=== PATIENT | female | born 1950 | race Caucasian/White ===

== ENCOUNTER 2019-01-06 23:35 | Emergency (ER) | payer MEDICARE, OTHER ==
[~2019-01-06] VITALS: Ht 154.9 cm; Wt 71.3 kg
[~2019-01-06 23:35] MED LIST: ACET-787 PO; GLIP10TA3 PO; IBUP-2213 PO; LOSA25TA14 PO; METF1000 PO; OMEP40EC1 PO; SIMV10TA1 PO
[2019-01-06 23:43] VITALS: BP 165/108
--- NOTE | 2019-01-06 23:52 | NUR ---
PT TAKEN TO BED 12.
--- NOTE | 2019-01-06 23:53 | NUR ---
68 YO F BIB SON PRESENTS TO THE ED C/O URINARY RETENTION X 1 DAY. PT REPORTS 10/10 PAIN TO SUPRAPUBIC REGION. -- BLADDER DISTENTION NOTED. SUPRAPUBIC TENDERNESS PRESENT. -- PT SHOWING SIGNS OF SEVERE PAIN: GRIMACING, TREMBLING. SKIN IS WARM/DRY/PINK. -- PMH: PREVIOUS BLADDER ISSUES, HTN, DM PT POSITIONED FOR COMFORT. HOB ELEVATED. SIDE RAIL UP X1. BED IN LOWEST POSITION. ERMD EVALUATING PT AT BEDSIDE.
--- NOTE | 2019-01-07 00:05 | NUR ---
# 16 FR Madrid catheter with 10 ml utilizing sterile technique. Immediate return of 700 ml clear, yellow urine noted. Bedside drainage bag placed below level of bladder. Urine sample collected and sent to lab. Pt tolerated procedure well. Addendum: 01/07/19 at 0148 by [facility] Pt reports immediate relief from catheter.
[2019-01-07 00:26] LABS: APPEARANCE,URINE SL CLOUDY (CLEAR); BILIRUBIN,URINE NEGATIVE (NEGATIVE); BLOOD, URINE 3+ (NEGATIVE); COLOR,URINE YELLOW (YELLOW); LEUKOCYTE ESTERASE ,URINE NEGATIVE (NEGATIVE); NITRITE, URINE NEGATIVE (NEGATIVE); UGLUCOSE TRACE (NEGATIVE)
[2019-01-07 00:40] LABS: RBC,URINE 20-50 /HPF (0-5); WBC,URINE 0 /HPF (0-5)
[2019-01-07] MEDS ORDERED: KETOROLAC 30 MG/ML VIAL IVP ONE (00:45)
[2019-01-07] MEDS ORDERED: cefTRIAXone 1,000 MG VIAL ONE (01:07)
--- NOTE | 2019-01-07 02:18 | NUR ---
Patient discharged with v/s stable. Written and verbal after care instructions given and explained. Patient alert, oriented and verbalized understanding of instructions. Ambulatory with steady gait. All questions addressed prior to discharge. ID band removed. Patient advised to follow up with PMD. Rx of Pyridium and Ciproflaxacin given. Patient educated on indication of medication including possible reaction and side effects. Leg bag placed for indwelling catheter urinary drainage. Instructions provided for care. Pt instructed to follow up with PMD. Opportunity to ask questions provided and answered. Discharged by Dr. Mike.
[2019-01-07 02:26] VITALS: BP 125/67
== END 2019-01-07 02:18 | disposition home or self-care (01) ==
LOC: MED 23:35
DX: N39.0 Urinary tract infection, site not specified (principal); R33.9 Retention of urine, unspecified; E11.9 Type 2 diabetes mellitus without complications; Z79.84 Long term (current) use of oral hypoglycemic drugs; Z79.1 Long term (current) use of non-steroidal anti-inflammatories (NSAID); Z79.899 Other long term (current) drug therapy
CPT/HCPCS: 51702; 81001; 82948; 96365; 96375; 99284; J0696; J1885

== ENCOUNTER 2019-09-29 18:07 | Emergency (ER) | payer MEDICARE, OTHER ==
[~2019-09-29] VITALS: Ht 152.4 cm; Wt 68.0 kg
[~2019-09-29 18:07] MED LIST changes: -ACET-787 PO; -LOSA25TA14 PO; +LOSA25TA32 PO; -OMEP40EC1 PO; +OMEP40EC24 PO
[2019-09-29 18:29] VITALS: BP 166/94
--- NOTE | 2019-09-29 18:41 | NUR ---
PT AMB TO BED 3
--- NOTE | 2019-09-29 18:51 | NUR ---
69 Y/O F C/O UNABLE TO URINATE. PT STATES SHE HAS LOWER ABDOMINAL PAIN AND UNABLE TO URINATE SINCE THIS MORNING. PT GAVE A URINE SAMPLE THAT IS RED IN COLOR. PT STATES LAST TIME THIS HAPPENED, SHE HAD A UTI. PT DENIES ANY N/V/F. MED HX: DM, HTN
[2019-09-29] MEDS ORDERED: HYDROcodone/APAP 5/325 MG 1 TAB TAB PO ONE (19:15)
[2019-09-29] MEDS ORDERED: CEPHALEXIN 500 MG CAP PO ONE (19:45)
[2019-09-29 19:58] LABS: BASOPHILS % (AUTO) 0.4 % (0.0-2.0); EOSINOPHILS # (AUTO) 0.1 K/uL (0-0.4); EOSINOPHILS % (AUTO) 0.6 % (0.0-4.0); HEMATOCRIT 33.6 % (36-48); HEMOGLOBIN 11.2 g/dL (12.0-16.0); LYMPHOCYTES # (AUTO) 1.7 K/uL (2.5-16.5); LYMPHOCYTES % (AUTO) 14.5 % (20.5-51.1); MEAN CORPUSCULAR HEMOGLOBIN 30 pg (27-31); MEAN CORPUSCULAR HGB CONC 33 g/dL (33-37); MEAN CORPUSCULAR VOLUME 88.5 fL (80-94); MONOCYTES # (AUTO) 0.6 K/uL (0.8-1.0); MONOCYTES % (AUTO) 4.8 % (1.7-9.3); NEUTROPHILS # (AUTO) 9.1 K/uL (1.8-7.7); NEUTROPHILS % (AUTO) 79.7 % (42.2-75.2); PLATELET COUNT (AUTO) 273 K/uL (140-450); WHITE BLOOD COUNT (AUTO) 11.5 K/uL (4.8-10.8)
[2019-09-29 20:07] LABS: ANION GAP 14.3 (8-16); CARBON DIOXIDE 24.4 mmol/L (21-32); CREATININE 0.8 mg/dL (0.6-1.3); POTASSIUM 3.7 mmol/L (3.5-5.1)
[2019-09-29 20:46] LABS: APPEARANCE,URINE CLOUDY (CLEAR); BILIRUBIN,URINE NEGATIVE (NEGATIVE); BLOOD, URINE 3+ (NEGATIVE); COLOR,URINE RED (YELLOW); LEUKOCYTE ESTERASE ,URINE TRACE (NEGATIVE); NITRITE, URINE NEGATIVE (NEGATIVE); UGLUCOSE TRACE (NEGATIVE)
[2019-09-29] MEDS ORDERED: CEPHALEXIN 500 MG CAP ONE (20:51)
[2019-09-29 21:07] LABS: RBC,URINE >100 /HPF (0-5)
--- NOTE | 2019-09-29 21:25 | NUR ---
WEST CATH 16FR INSERTED BY RODERICK CISNEROS. 300CC BLOODY RED/ORANGE IN APPEARANCE OUTPUT.
--- NOTE | 2019-09-29 21:30 | NUR ---
# 16 FR Madrid catheter with 10 ml utilizing sterile technique. Immediate return of 300 ml RED,ORANGE urine noted. Bedside drainage bag placed below level of bladder. Urine sample collected and sent to lab. Pt tolerated procedure WELL.
[2019-09-29 21:58] VITALS: BP 166/94
--- NOTE | 2019-09-29 21:58 | NUR ---
Patient discharged with v/s stable. Written and verbal after care instructions given and explained. Patient alert, oriented and verbalized understanding of instructions. Ambulatory with steady gait. All questions addressed prior to discharge. ID band removed. Patient advised to follow up with PMD. Rx of KEFLEX,NORCO, MOTRIN given. Patient educated on indication of medication including possible reaction and side effects. Opportunity to ask questions provided and answered.
== END 2019-09-29 21:58 | disposition home or self-care (01) ==
LOC: MED 18:07
DX: N39.0 Urinary tract infection, site not specified (principal); R35.0 Frequency of micturition; E11.9 Type 2 diabetes mellitus without complications; I10 Essential (primary) hypertension; E78.00 Pure hypercholesterolemia, unspecified; Z90.49 Acquired absence of other specified parts of digestive tract; Z90.710 Acquired absence of both cervix and uterus; Z79.899 Other long term (current) drug therapy
CPT/HCPCS: 36415; 51702; 80048; 81001; 85025; 87086; 99284

== ENCOUNTER 2021-01-17 06:52 | Emergency (ER) | payer MEDICARE, OTHER ==
[~2021-01-17] VITALS: Ht 152.4 cm; Wt 68.9 kg
[2021-01-17 06:58] VITALS: BP 190/89
--- NOTE | 2021-01-17 06:58 | NUR ---
to bed ambulatory
[2021-01-17] MEDS ORDERED: ACETAMINOPHEN EXTRA STRENGTH 500 MG TAB PO ONE (07:10)
--- NOTE | 2021-01-17 07:12 | NUR ---
Lab at bedside
--- NOTE | 2021-01-17 07:14 | NUR ---
70 y/o F coming in from home with c/c dysuria x 1 day. Patient presents A&Ox4, ambulatory, Yi speaking and states dysuria since last night> Patient states associated abdominal pain that she rates 10/10 to suprapubic region, pressure/constant, non-radiating. Patient denies nausea, vomiting, diarrhea, constiptiation, back pain, fever, chills, hematuria, kidney stones, dizziness, headache, chest pain. Patient states she took Azo OT and she has experienced UTIs twice in the past. Patient states she is unable to void due to her urinary symptoms and is requesting straight catheter at this time. Pt placed onto cardiac cath lab manager. Bowel sounds normoactive x 4 quadrants. Bed locked in lowest position, side rails x 1, call light in reach. PMH: DM2 Meds: N/A NKA Sx: hysterectomy, cholecystectomy
--- NOTE | 2021-01-17 07:14 | NUR ---
DR. ELIZABETH AT BEDSIDE EVALUATING PATIENT.
--- NOTE | 2021-01-17 07:25 | NUR ---
Patient ambulated to restroom with steady/even gait for urine sample attempt.
[2021-01-17 07:28] LABS: BASOPHILS % (AUTO) 0.4 % (0.0-2.0); EOSINOPHILS # (AUTO) 0.1 K/uL (0-0.4); EOSINOPHILS % (AUTO) 1.3 % (0.0-4.0); HEMATOCRIT 37.7 % (36-48); HEMOGLOBIN 12.7 g/dL (12.0-16.0); LYMPHOCYTES # (AUTO) 3.1 K/uL (2.5-16.5); LYMPHOCYTES % (AUTO) 32.5 % (20.5-51.1); MEAN CORPUSCULAR HEMOGLOBIN 30 pg (27-31); MEAN CORPUSCULAR HGB CONC 34 g/dL (33-37); MONOCYTES # (AUTO) 0.6 K/uL (0.8-1.0); MONOCYTES % (AUTO) 6.4 % (1.7-9.3); NEUTROPHILS # (AUTO) 5.6 K/uL (1.8-7.7); NEUTROPHILS % (AUTO) 59.4 % (42.2-75.2); PLATELET COUNT (AUTO) 297 K/uL (140-450); RED BLOOD CELL COUNT(AUTO) 4.28 MIL/uL (4.20-5.40); RED CELL DISTRIBUTION WIDTH 14.2 % (11.6-13.7); WHITE BLOOD COUNT (AUTO) 9.5 K/uL (4.8-10.8)
--- NOTE | 2021-01-17 07:28 | NUR ---
Patient ambulated back to bed; states unable to void at this time.
--- NOTE | 2021-01-17 07:35 | NUR ---
# 16 FR Madrid catheter with 10 ml utilizing sterile technique. Immediate return of 800 ml clear/segundo urine noted. Bedside drainage bag placed below level of bladder. Urine sample collected and sent to lab. Pt tolerated procedure well.
[2021-01-17 07:38] LABS: ANION GAP 18.9 (8-16); CARBON DIOXIDE 26.4 mmol/L (21-32); CHLORIDE 93 mmol/L (98-107); GLUCOSE 193 mg/dL (74-106); POTASSIUM 4.3 mmol/L (3.5-5.1); SODIUM SERUM 134 mmol/L (136-145); UREA NITROGEN, BLOOD 17 mg/dL (7-18)
--- NOTE | 2021-01-17 07:40 | NUR ---
Urine sample collected via Madrid catheter, walked to lab and handed to deneen Betancourt tech.
[2021-01-17 07:41] LABS: APPEARANCE,URINE HAZY (CLEAR); BILIRUBIN,URINE NEGATIVE (NEGATIVE); BLOOD, URINE 3+ (NEGATIVE); COLOR,URINE ORANGE (YELLOW); LEUKOCYTE ESTERASE ,URINE NEGATIVE (NEGATIVE); NITRITE, URINE POSITIVE (NEGATIVE); UGLUCOSE NEGATIVE (NEGATIVE)
--- NOTE | 2021-01-17 07:42 | NUR ---
Patient reassessed for pain after medication administration; patient states "no more pain, catheter helped."
[2021-01-17 07:43] LABS: ALBUMIN 3.7 g/dL (3.4-5.0); ASPARTATE AMINOTRANSFERASE 12 U/L (15-37); TOTAL BILIRUBIN 0.5 mg/dL (0.0-1.0)
[2021-01-17 07:48] LABS: WBC,URINE 0-5 /HPF (0-5)
[2021-01-17 07:49] LABS: RBC,URINE >100 /HPF (0-5)
--- NOTE | 2021-01-17 08:30 | NUR ---
Patient resting in position of comfort with both eyes closed. court monitor remains in place. Bed locked in lowest position, side rails x 1, call light in reach. Respirations even/unlabored.
[2021-01-17] MEDS ORDERED: ACET-9882 PO (08:35)
[2021-01-17] MEDS ORDERED: CEPH500C16 PO (08:35)
--- NOTE | 2021-01-17 09:45 | NUR ---
Patient resting in position of comfort with both eyes closed. ekg monitor remains in place. Bed locked in lowest position, side rails x 1, call light in reach. Respirations even/unlabored.
[2021-01-17 09:49] VITALS: BP 153/80
--- NOTE | 2021-01-17 09:49 | NUR ---
Patient discharged with v/s stable. Written and verbal after care instructions given and explained. Patient alert, oriented and verbalized understanding of instructions. Ambulatory with steady gait. All questions addressed prior to discharge. ID band removed. Patient advised to follow up with PMD. Rx of Acetaminophen, Cephalexin given. Patient educated on indication of medication including possible reaction and side effects. Opportunity to ask questions provided and answered.
== END 2021-01-17 09:49 | disposition home or self-care (01) ==
LOC: MED 06:52
DX: N39.0 Urinary tract infection, site not specified (principal); R33.9 Retention of urine, unspecified; E11.9 Type 2 diabetes mellitus without complications; I10 Essential (primary) hypertension; E78.5 Hyperlipidemia, unspecified; Z90.49 Acquired absence of other specified parts of digestive tract; Z90.710 Acquired absence of both cervix and uterus
CPT/HCPCS: 36415; 51702; 80053; 81001; 83690; 85025; 99284